=== PATIENT | female | born 1985 | race American Indian/Alaskan Native ===

== ENCOUNTER 2019-03-11 18:47 | Emergency (ER) | payer MEDICAID, OTHER ==
[2019-03-11] MEDS ORDERED: Sodium Chloride 0.9% 1,000 ML IV ONE (19:33)
--- NOTE | 2019-03-11 19:33 | C.PDOC ---
History Of Present Illness 33 year old female presents to the ED c/o suprapubic abdominal pain since Sunday. Patient denies fever, chills, nausea, vomit, diarrhea, dysuria, hematuria, back pain. Time Seen by Provider: 03/11/19 19:30 Chief Complaint (Nursing): Abdominal Pain History Per: Patient History/Exam Limitations: no limitations Onset/Duration Of Symptoms: Days Current Symptoms Are (Timing): Still Present Location Of Pain/Discomfort: Suprapubic Quality Of Discomfort: "Pain" Associated Symptoms: denies: Nausea, Vomiting, Diarrhea, Urinary Symptoms Recent travel outside of the [place]: No Additional History Per: Patient Abnormal Vaginal Bleeding: No Past Medical History Reviewed: Historical Data, Nursing Documentation, Vital Signs Vital Signs: Last Vital Signs Temp 99 F 03/11/19 18:54 Pulse 83 03/11/19 18:54 Resp 18 03/11/19 18:54 BP 104/68 03/11/19 18:54 Pulse Ox 98 03/11/19 18:54 Primary Care Provider: FAMILY PROVIDER,NO - Medical History PMH: No Chronic Diseases Surgical History: No Surg Hx Family History: States: Unknown Family Hx - Social History Hx Alcohol Use: Yes Hx Substance Use: No - Immunization History Hx Tetanus Toxoid Vaccination: No Hx Influenza Vaccination: No Hx Pneumococcal Vaccination: No Review Of Systems Constitutional: Negative for: Fever, Chills Cardiovascular: Negative for: Chest Pain Respiratory: Negative for: Shortness of Breath Gastrointestinal: Positive for: Abdominal Pain. Negative for: Nausea, Vomiting, Diarrhea Genitourinary: Negative for: Dysuria, Hematuria Musculoskeletal: Negative for: Back Pain Skin: Negative for: Rash Physical Exam - Physical Exam Appears: Non-toxic, No Acute Distress Skin: Normal Color, Warm, Dry Head: Atraumatic, Normacephalic Eye(s): bilateral: Normal Inspection Oral Mucosa: Moist Neck: Normal ROM, Supple Chest: Symmetrical Cardiovascular: Rhythm Regular Respiratory: Normal Breath Sounds, No Rales, No Rhonchi, No Wheezing Gastrointestinal/Abdominal: Soft, Tenderness (min suprapubic), No Guarding, No Rebound Back: No CVA Tenderness Extremity: Normal ROM, No Tenderness, No Swelling Neurological/Psych: Oriented x3, Normal Speech, Normal Cognition Gait: Steady ED Course And Treatment - Laboratory Results Result Diagrams: 03/11/19 19:49 03/11/19 19:49 O2 Sat by Pulse Oximetry: 98 (ON RA) Pulse Ox Interpretation: Normal Medical Decision Making Medical Decision Making: ro uti,pelvic pain. no rlq tendernessPlan: * Labs * Tylenol 975 mg PO * IV fluids * UA in er, pt in nad. abd soft no ttp all pain resolved. pt started period in er, states now pain resolved. refuses any further imagin gasking for dc. Disposition - Disposition Referrals: [facility] [Outside] [facility] Disposition: HOME/ ROUTINE Disposition Time: 23:00 Condition: STABLE Additional Instructions: return toer with worsening. you are declinign further imaging return to any er with worsening. Instructions: Acute Abdomen (Belly Pain), Acute Pelvic Pain (DC) Forms: [employer] (K[place]itian) - Clinical Impression Clinical Impression: Abdominal pain - Scribe Statement The provider has reviewed the documentation as recorded by the Scribe Richard Mabry All medical record entries made by the Scribe were at my direction and personally dictated by me. I have reviewed the chart and agree that the record accurately reflects my personal performance of the history, physical exam, medical decision making, and the department course for this patient. I have also personally directed, reviewed, and agree with the discharge instructions and disposition.
[2019-03-11 20:00] LABS: BASO % 0.7 % (0.0-2.0); EOS % 0.9 % (0.0-4.0); HEMOGLOBIN 13.5 g/dL (11.0-16.0); LYMPH # 1.1 K/uL (1.0-4.3); LYMPH % 22.7 % (20.0-40.0); MEAN CELL VOLUME 96.2 fL (81.0-99.0); MEAN CORPUSCULAR HEMOGLOBIN 33.2 pg (27.0-31.0); MEAN CORPUSCULAR HGB CONC 34.5 g/dL (33.0-37.0); MEAN PLATELET VOLUME 8.3 fL (7.2-11.7); MONO % 19.8 % (0.0-10.0); NEUT # 2.8 K/uL (1.8-7.0); NEUT % 55.9 % (50.0-75.0); NRBC % 0.1 % (0.0-2.0); RBC 4.07 Mil/uL (3.80-5.20); RED CELL DISTRIBUTION WIDTH 13.3 % (11.5-14.5)
[2019-03-11] MEDS ORDERED: Sodium Chloride 0.9% 1,000 ML ONE (20:04)
[2019-03-11 20:07] LABS: HCG,QUALITATIVE URINE NEGATIVE (NEGATIVE)
[2019-03-11 20:08] LABS: ALB/GLOB RATIO 1.4 (1.0-2.1); ALBUMIN 4.1 g/dL (3.5-5.0); ALT/SGPT 17 U/L (9-52); AST/SGOT 30 U/L (14-36); BLOOD UREA NITROGEN 11 mg/dL (7-17); CALCIUM 8.5 mg/dl (8.6-10.4); GFR NON-AFRICAN AMERICAN > 60; LIPASE 33 U/L (23-300)
[2019-03-11 20:09] LABS: INR 1.3; PARTIAL THROMBOPLASTIN TIME 31.3 SECONDS (21-34); PROTHROMBIN TIME 13.8 SECONDS (9.7-12.2)
[2019-03-11 20:12] LABS: SQUAMOUS EPITHIAL 41 /hpf (0-5); URINE BACTERIA OCC (<OCC); URINE BILIRUBIN NEGATIVE (NEGATIVE); URINE BLOOD 3+ (NEGATIVE); URINE CLARITY Hazy (Clear); URINE COLOR Amber (YELLOW); URINE GLUCOSE (UA) NORMAL (Normal); URINE LEUKOCYTE ESTERASE NEG Leu/uL (Negative); URINE PROTEIN 2+ mg/dL (NEGATIVE)
[2019-03-11 20:38] VITALS: BP 105/65; PULSE 78; RESP 16; TEMP 98.9
[2019-03-11 22:02] VITALS: O2SAT 98
== END 2019-03-11 20:38 | disposition home or self-care (01) ==
LOC: C.ER 18:47
DX: R10.30 Lower abdominal pain, unspecified (principal)
CPT/HCPCS: 80053; 81001; 83690; 84703; 85025; 85610; 85730; 99284; J7030